=== PATIENT | female | born 1950 | race Caucasian/White ===

== ENCOUNTER → 2019-04-17 | Outpatient (CLI) | payer OTHER ==
--- NOTE | 2019-04-17 12:42 | 2DMMODE ---
[facility] [place] [place] [address] 2 D/M-MODE ECHOCARDIOGRAM Name: SANDIE AMOSJeovany Lutz Room #: REG [facility]#: [id number] Admission: 04/17/19 Attend Phys: Janusz Mckeon Discharge: Date of : 46 Report #: [id number] THIS REPORT FOR: //name// APPROVED REPORT Study performed: 04/17/2019 10:06:14 EXAM: Comprehensive 2D, Doppler, and color-flow Echocardiogram Patient Location: Out-Patient Status: routine BSA: 1.86 HR: 61 bpm BP: 132/70 mmHg Rhythm: PVC's Other Information Study Quality: Good Indications Palpitations Syncope 2D Dimensions RVDd: 27.85 mm IVSd: 9.66 (7-11mm) LVOT Diam: 19.54 (18-24mm) LVDd: 54.34 mm PWd: 9.51 (7-11mm) Ascending Ao: 31.78 (22-36mm) LVDs: 37.75 (25-40mm) Aortic Root: 28.50 mm IVC: 15.00 mm Volumes Left Atrial Volume (Systole) Single Plane 4CH: 62.07 mL Single Plane 2CH: 75.45 mL LA ESV Index: 43.00 mL/m2 Aortic Valve AoV Peak Omari.: 1.76 m/s AO Peak Gr.: 12.36 mmHg LVOT Max P.70 mmHg LVOT Max V: 1.19 m/s LYLA Vmax: 2.04 cm2 Mitral Valve E/A Ratio: 0.7 MV Decel. Time: 225.03 ms [facility] [place] [address] [place] [address] 2 D/M-MODE ECHOCARDIOGRAM Name: BETTESANDIEJeovany Lutz Room #: REG [facility]#: [id number] Admission: 04/17/19 Attend Phys: Janusz Mckeon Discharge: Date of : 46 Report #: [id number] MV E Max Omari.: 0.94 m/s MV A Omari.: 1.35 m/s MV PHT: 65.26 ms IVRT: 89.97 ms Pulmonary Valve PV Peak Omari.: 0.80 m/s PV Peak Gr.: 2.56 mmHg Pulmonary Vein P Vein S: 0.68 m/s P Vein A: 0.35 m/s P Vein D: 0.38 m/s P Vein A Dur.: 124.6 msec P Vein S/D Ratio: 1.79 Tricuspid Valve TR Peak Omari.: 2.75 m/s RAP Estimate: 5.00 mmHg TR Peak Gr.: 30.15 mmHg PA Pressure: 35.00 mmHg Left Ventricle The left ventricle is normal size. There is normal LV segmental wall motion. There is normal left ventricular wall thickness. The left ventricular systolic function is normal. The left ventricular ejection fraction is within the normal range. LVEF is 55-60%. Mild diastolic dysfunction is present (impaired relaxation pattern). Right Ventricle The right ventricle is normal size. The right ventricular systolic function is normal. Atria Left atrium is moderately dilated. The right atrium size is normal. Aortic Valve The aortic valve is normal in structure. Trace aortic regurgitation. There is no aortic valvular stenosis. Mitral Valve Mitral valve leaflets are mildly thickened. Moderate mitral regurgitation. No evidence of mitral valve stenosis. Tricuspid Valve The tricuspid valve is normal in structure. Mild to moderate tricuspid regurgitation. Eccentric jets. Estimated PAP is 35mmHg. [facility] [address] [place] [address] 2 D/M-MODE ECHOCARDIOGRAM Name: ZULEMA AMOS Room #: [facility]#: [id number] Admission: 04/17/19 Attend Phys: [facility] Discharge: Date of : 46 Report #: [id number] Pulmonic Valve Pulmonic valve is not well visualized. Great Vessels The aortic root is normal in size. The ascending aorta is normal in size. IVC is normal in size and collapses >50% with inspiration. Pericardium There is no pericardial effusion. <Conclusion> The left ventricular systolic function is normal. There is normal LV segmental wall motion. LVEF is 55-60%. Mild diastolic dysfunction Left atrium is moderately dilated. The aortic valve is normal in structure. Trace aortic regurgitation, no stenosis. Mitral valve leaflets are mildly thickened. Moderate mitral regurgitation. Mild to moderate tricuspid regurgitation. Estimated pulmonary artery pressure of 35mmHg. There is no pericardial effusion. <ELECTRONICALLY SIGNED> By: Roman Gonzales MD, FACC 04/17/19 [phone] [id number] Roman Gonzales MD, FACC /INF
== END ==
LOC: CV 09:43
DX: I08.1 Rheumatic disorders of both mitral and tricuspid valves (principal)

== ENCOUNTER → 2019-04-19 | Outpatient (CLI) | payer OTHER | LOC: NUC | DX: R55 Syncope and collapse (principal); I10 Essential (primary) hypertension; E78.5 Hyperlipidemia, unspecified; Z79.899 Other long term (current) drug therapy ==

== ENCOUNTER → 2019-10-09 | Outpatient (CLI) | payer OTHER | LOC: SJCVC 12:57 | DX: R94.31 Abnormal electrocardiogram [ECG] [EKG] (principal); R00.1 Bradycardia, unspecified ==

== ENCOUNTER → 2019-12-12 | Outpatient (CLI) | payer OTHER | LOC: SJCVCIMAG 10:50 | PROVIDERS: ATTEND Internal Medicine Cardiovascular Disease | DX: I08.1 Rheumatic disorders of both mitral and tricuspid valves (principal); I11.9 Hypertensive heart disease without heart failure; R94.31 Abnormal electrocardiogram [ECG] [EKG]; E78.5 Hyperlipidemia, unspecified; M85.80 Other specified disorders of bone density and structure, unspecified site; E66.9 Obesity, unspecified; Z79.899 Other long term (current) drug therapy; Z82.49 Family history of ischemic heart disease and other diseases of the circulatory system ==

== ENCOUNTER → 2020-02-12 | Outpatient (CLI) | payer OTHER | LOC: SJCVC 14:29 | PROVIDERS: ATTEND Internal Medicine Cardiovascular Disease | DX: I49.3 Ventricular premature depolarization (principal); R55 Syncope and collapse; E66.01 Morbid (severe) obesity due to excess calories; E78.5 Hyperlipidemia, unspecified; I12.9 Hypertensive chronic kidney disease with stage 1 through stage 4 chronic kidney disease, or unspecified chronic kidney disease; N18.9 Chronic kidney disease, unspecified; Z79.899 Other long term (current) drug therapy; Z82.49 Family history of ischemic heart disease and other diseases of the circulatory system ==

== ENCOUNTER → 2020-08-06 | Outpatient (CLI) | payer OTHER | LOC: SJCVC 13:26 | PROVIDERS: ATTEND Internal Medicine Cardiovascular Disease | DX: R00.1 Bradycardia, unspecified (principal); R53.83 Other fatigue; R42 Dizziness and giddiness; I10 Essential (primary) hypertension; E78.5 Hyperlipidemia, unspecified; M85.80 Other specified disorders of bone density and structure, unspecified site; E66.9 Obesity, unspecified; Z79.899 Other long term (current) drug therapy; Z82.49 Family history of ischemic heart disease and other diseases of the circulatory system ==

== ENCOUNTER → 2020-09-09 | Outpatient (CLI) | payer OTHER | LOC: SJCVCIMAG 07:17 | PROVIDERS: ATTEND Internal Medicine Cardiovascular Disease | DX: I34.0 Nonrheumatic mitral (valve) insufficiency (principal); I49.3 Ventricular premature depolarization; R55 Syncope and collapse; R42 Dizziness and giddiness; E66.9 Obesity, unspecified; I12.9 Hypertensive chronic kidney disease with stage 1 through stage 4 chronic kidney disease, or unspecified chronic kidney disease; N18.9 Chronic kidney disease, unspecified; E78.5 Hyperlipidemia, unspecified; Z98.890 Other specified postprocedural states; Z79.899 Other long term (current) drug therapy; Z82.49 Family history of ischemic heart disease and other diseases of the circulatory system ==